=== PATIENT | female | born 1945 | race Caucasian/White ===

== ENCOUNTER → 2020-06-11 | Outpatient (CLI) | payer OTHER | LOC: MRI 15:49 | DX: M47.816 Spondylosis without myelopathy or radiculopathy, lumbar region (principal); N28.1 Cyst of kidney, acquired; M48.56XA Collapsed vertebra, not elsewhere classified, lumbar region, initial encounter for fracture; M43.8X4 Other specified deforming dorsopathies, thoracic region; M43.8X6 Other specified deforming dorsopathies, lumbar region; G89.29 Other chronic pain ==

== ENCOUNTER → 2020-06-18 | Outpatient (CLI) | payer OTHER ==
[~2020-06-18] VITALS: Ht 165.1 cm; Wt 56.7 kg
[~2020-06-18] MED LIST: FLEXERIL PO; PREDNISONE 5 MG5 M1 PO; TYLENOL325 MG PO; ULTRAM 50MG TAB50 MG PO
[2020-06-18 11:10] VITALS: BP 148/74
[2020-06-18 11:52] LABS: HEMATOCRIT 41.5 % (37.0-47.0); HEMOGLOBIN 14.3 gm/dL (12.0-15.0); MCHC 34.3 g/dL (28.0-37.0); MCV 90.4 fL (80.0-100.0); RBC 4.6 mil/uL (4.20-5.00); RDW 12.9 % (10.5-14.5); WBC 8.2 thou/uL (4.0-11.0)
== END | disposition home or self-care (01) ==
LOC: CATH 10:18
PROVIDERS: ATTEND Nuclear Medicine Nuclear Cardiology
DX: M54.6 Pain in thoracic spine (principal); M80.08XG Age-related osteoporosis with current pathological fracture, vertebra(e), subsequent encounter for fracture with delayed healing; Z98.890 Other specified postprocedural states; Z79.899 Other long term (current) drug therapy

== ENCOUNTER → 2020-06-19 | Outpatient (CLI) | payer OTHER ==
[~2020-06-19] VITALS: Ht 165.1 cm; Wt 56.7 kg
[2020-06-19 14:24] VITALS: BP 139/67
== END | disposition home or self-care (01) ==
LOC: MRI 12:35
PROVIDERS: ATTEND Nuclear Medicine Nuclear Cardiology
DX: M80.08XG Age-related osteoporosis with current pathological fracture, vertebra(e), subsequent encounter for fracture with delayed healing (principal); M54.6 Pain in thoracic spine; Z98.890 Other specified postprocedural states; Z79.899 Other long term (current) drug therapy

== ENCOUNTER → 2020-06-24 | Outpatient (CLI) | payer OTHER | LOC: CATH 08:04 → MRI 08:53 | PROVIDERS: ATTEND Nuclear Medicine Nuclear Cardiology | DX: M51.37 Other intervertebral disc degeneration, lumbosacral region (principal); M47.814 Spondylosis without myelopathy or radiculopathy, thoracic region; M48.04 Spinal stenosis, thoracic region ==

== ENCOUNTER → 2020-07-07 | Outpatient (CLI) | payer OTHER | LOC: SJCVC 09:01 | PROVIDERS: ATTEND Nuclear Medicine Nuclear Cardiology | DX: M80.08XG Age-related osteoporosis with current pathological fracture, vertebra(e), subsequent encounter for fracture with delayed healing (principal); X58.XXXD Exposure to other specified factors, subsequent encounter ==